=== PATIENT | male | born 1965 | race Caucasian/White ===

== ENCOUNTER 2016-07-11 10:44 | Emergency (ER) | payer BC ==
[~2016-07-11] VITALS: Ht 188 cm; Wt 110.0 kg
[2016-07-11 10:47] VITALS: BP 178/113; PULSE 97; RESP 16; TEMP 98.1; O2SAT 97
[2016-07-11] MEDS ORDERED: CHOLMIS PO (10:58)
[2016-07-11] MEDS ORDERED: LISI40TA PO (10:58)
--- NOTE | 2016-07-11 10:59 | PD ---
HPI Chief Complaint: Dizziness Time Seen by Provider: 10:51 Travel History International Travel<30 days: No Contact w/Intl Traveler<30days: No Traveled to known affect area: No History of Present Illness HPI 50-year-old male with history of HTN, HLD here with complaint of dizziness. Patient states that he was sitting at his desk at work approximately 30 minutes ago. He got a sudden onset of the loud, or ringing-type sensation, tinnitus in his left ear. This resolved, and was followed by a profound vertigo sensation. Patient states that this has been intermittent since onset, and seems to come and go without provocation. He notes an associated muffled type hearing loss in his left ear. Patient has not noticed any positional sensation. He notes a remote history of a benign meningioma removal, otherwise no neurologic history. He denies any other numbness, weakness, tingling, etc. In association with the vertigo patient states he became nauseous, slightly diaphoretic. No chest pain, shortness of breath, palpitations. PFSH Past Medical History Hx Anticoagulant Therapy: No Cardiovascular Problems: Yes (HTN, CHOL) High Cholesterol: Yes Diabetes: No Hypertension: Yes Past Surgical History Neurologic Surgery: Yes (meningioma resection) Other Surgery: Yes (left rotator cuff) Social History Alcohol Use: No Tobacco Use: No Substance Use: No Allergies-Medications (Allergen,Severity, Reaction): Coded Allergies: No Known Allergies (Unverified , 07/11/16) Reported Meds & Prescriptions Reported Meds & Active Scripts Active Reported Allopurinol 100 Mg Tab 100 Mg PO DAILY Cholesterol 1 Mis Mis 1 Tab PO DAILY Lisinopril 40 Mg Tab 40 Mg PO DAILY Review of Systems Except as stated in HPI: all other systems reviewed are Neg Physical Exam Narrative GENERAL: Healthy appearing male in no acute distress SKIN: Focused skin assessment warm/dry. HEAD: Normocephalic. EYES: Pupils equal and round. No scleral icterus. No injection or drainage. ENT: No nasal bleeding or discharge. Mucous membranes pink and moist. TMs clear bilaterally. EOMI without nystagmus. NECK: Supple without bruit CARDIOVASCULAR: Regular rate and rhythm. No murmur appreciated. RESPIRATORY: No accessory muscle use. Clear to auscultation. Breath sounds equal bilaterally. GASTROINTESTINAL: Abdomen soft, non-tender, nondistended. MUSCULOSKELETAL: No obvious deformities. No edema. NEUROLOGICAL: Awake and alert. No obvious cranial nerve deficits. Motor grossly within normal limits. Normal speech. Normal cerebellar exam with finger -nose-finger, [id number], gait. PSYCHIATRIC: Appropriate mood and affect; insight and judgment normal. Data Data Last Documented VS Vital Signs Date Time Temp Pulse Resp B/P Pulse Ox O2 Delivery O2 Flow Rate FiO2 07/11/16 11:13 85 18 153/97 97 Room Air 07/11/16 10:47 98.1 Orders Electrocardiogram (07/11/16 10:55) Ecg Monitoring (07/11/16 10:55) Oximetry (07/11/16 10:55) Meclizine (Antivert) (07/11/16 11:00) Sodium Chloride 0.9% Flush (Ns Flush) (07/11/16 11:00) Diphenhydramine Inj (Benadryl Inj) (07/11/16 11:00) MDM Medical Decision Making Medical Screen Exam Complete: Yes Emergency Medical Condition: Yes Medical Record Reviewed: Yes Differential Diagnosis 50-year-old male with history of HTN, HLD here with sudden onset of vertigo, tinnitus 30 minutes ago. Symptoms are classic for peripheral etiology of vertigo, likely Mnire's versus BPPV, labyrinthitis. Less likely central etiology. Narrative Course Patient placed on monitor. Twelve-lead EKG was obtained that shows sinus rhythm without notable ST abnormalities, normal intervals. Patient was given 50 mg Benadryl, 50 mg meclizine. Patient had resolution of symptoms and was feeling significantly improved. Able to ambulate independently without symptoms. Diagnosis Primary Impression: Mnire's disease Qualified Code: H81.02 - Ménière's disease, left Referrals: Yassine Osei MD call for appointment Additional Instructions: Meclizine, Benadryl as needed for vertigo. Follow up with ENT as discussed. Med/Other Pt SpecificInfo: Prescription(s) given Scripts Meclizine 25 Mg Tab25 Mg PO TID PRN (VERTIGO) #30 TAB Ref 0 Prov:Gris Soriano MD 07/11/16 Disposition: 01 DISCHARGE HOME Condition: Stable Gris Soriano MD July 11, 2016 10:59
[2016-07-11] MEDS ORDERED: SODIUM CHLORIDE 0.9% FLUSH 10 ML FLUSH IVF PRN (11:00)
[2016-07-11] MEDS ORDERED: diphenhydrAMINE HCL 50 MG/ML VIAL IM ONE (11:00)
[2016-07-11] MEDS ORDERED: MECLIZINE HCL 25 MG TAB PO ONE (11:00)
[2016-07-11 11:04] VITALS: BP 144/114; PULSE 94; RESP 18; O2SAT 96
[2016-07-11] MEDS ORDERED: ALLO100T PO (11:11)
[2016-07-11 11:13] VITALS: BP 153/97; PULSE 85; RESP 18; O2SAT 97
[2016-07-11] MEDS ORDERED: MECL-62 PO (11:29)
--- NOTE | 2016-07-12 16:41 | EKG ---
Date Performed: 07/11/2016 Time Performed: 10:50:38 PTAGE: 50 years EKG: Sinus rhythm Leftward axis Nonspecific ST-T wave changes Poor R wave progression - probable normal variant Compar ed to prior tracing no significant change Borderline ECG NO PREVIOUS TRACING DOCTOR: Nay Pop Interpretating Date/Time 07/12/2016 16:40:23
== END 2016-07-11 11:40 | disposition home or self-care (01) ==
LOC: PHED 10:44
DX: H81.02 Meniere's disease, left ear (principal); R11.0 Nausea; R94.31 Abnormal electrocardiogram [ECG] [EKG]; E78.5 Hyperlipidemia, unspecified; I10 Essential (primary) hypertension; Z86.79 Personal history of other diseases of the circulatory system
CPT/HCPCS: 93005; 96372; 99284; J1200